=== PATIENT | male | born 1985 | race Caucasian/White ===

== ENCOUNTER 2021-12-29 09:51 | Emergency (ER) | payer OTHER, SELFPAY ==
--- NOTE | ~2021-12-29 | CT_ITS ---
EXAMINATION: CT brain wo con DATE: 12/29/2021 10:53 INDICATION: Head injury. TECHNIQUE: Computed tomography (CT) of the head was performed without intravenous contrast. The mA wa s adjusted according to patient size. Iterative reconstruction technique was employed. The dose-lengt h product was 681.00 mGy-cm. COMPARISON: None FINDINGS: There is no intracranial hemorrhage, acute infarction, or abnormal intracranial mass lesion . The ventricles are normal in size. The paranasal sinuses are clear. The orbits are normal. The mast oid air cells are normal. There is a superior scalp laceration. IMPRESSION: 1. Normal brain. Reviewed, dictated and finalized at location A. IMPRESSION: 1. Normal brain.
[2021-12-29 09:57] VITALS: BP 144/92; PULSE 91; RESP 20; TEMP 36.8; O2SAT 100
--- NOTE | 2021-12-29 10:15 | ED.WOUNDLAC ---
HPI - Wound/Laceration General Chief Complaint: Wound/Laceration Stated Complaint: Head lac Time Seen by Provider: 12/29/21 10:04 Source: patient Mode of arrival: ambulatory Limitations: no limitations History of Present Illness HPI narrative: Patient is a 36-year-old male who presents the ED with report of laceration to his head. Patient reports he was at the playground with his daughter today when he tried to pull himself up onto a platform and hit his head on a metal monkey bar. He sustained a large laceration to his superior head. Denied LOC. No other injuries. No vision changes, dizziness, lightheadedness, weakness. Tetanus status up-to-date. Review of Systems Review of Systems: CONSTITUTIONAL: Denies fever. SKIN: Reports laceration to superior scalp. NEUROLOGIC: Reports head injury. Denies LOC, dizziness, lightheadedness, numbness, or weakness. All systems reviewed & are unremarkable except as noted in HPI and below PMFSH Past Medical History Medical History (Updated 12/29/21 @ 11:48 by Rose Marie Carrera PA-C) ADHD (attention deficit hyperactivity disorder) Surgical History Surgical History (Updated 12/29/21 @ 11:43 by Rose Marie Carrera PA-C) No pertinent past surgical history Family History Family History (Updated 12/07/15 @ 23:19 by DOCTOR UNKNOWN) Father Family history of malignant neoplasm Sibling Family history of malignant neoplasm Mother Family history of malignant neoplasm of breast in first degree relative Social History Social History (Updated 12/29/21 @ 11:43 by Rose Marie Carrera PA-C) Smoking status: Never smoker Exam Narrative: GENERAL: Well appearing, well-nourished, non-toxic, in no acute distress. HEAD: Normocephalic. Approx 6cm linear superficial laceration to superior scalp, bleeding controlled. Minimal underlying swelling. No bony abnormalities palpated. EYES: PERRL/EOMI, conjunctivae clear bilaterally. NECK: Supple. No adenopathy, no masses. RESPIRATORY: Airway patent, respirations nonlabored. Clear to auscultation bilaterally, no rales, rhonchi, wheezing. CARDIOVASCULAR: Regular rate and rhythm without murmurs, rubs, or gallops. Radial pulses 2+ and equal bilaterally. MUSCULOSKELETAL: Moves all extremities. Strength/ROM intact without gross deformities. SKIN: Warm, dry, normal color. No rashes. NEURO: A&O X3. Speech clear. Cranial nerves II-XII grossly intact. Steady gait. No ataxic movements. PSYCHIATRIC: Appropriate mood and affect. Normal interaction. Course Vital Signs Vital signs: Vital Signs Temperature 98.3 F 12/29/21 09:57 Pulse Rate 91 12/29/21 09:57 Respiratory Rate 20 12/29/21 09:57 Blood Pressure 144/92 H 12/29/21 09:57 Pulse Oximetry 100 12/29/21 09:57 Oxygen Delivery Room Air 12/29/21 09:57 Temperature 98.3 F 12/29/21 09:57 Pulse Rate 91 12/29/21 09:57 Respiratory Rate 20 12/29/21 09:57 Blood Pressure 144/92 H 12/29/21 09:57 Pulse Oximetry 100 12/29/21 09:57 Oxygen Delivery Room Air 12/29/21 09:57 Procedures Laceration Laceration 1: Date: 12/29/21 Time: 11:35 Site: scalp Size (cm): 6 Description: linear Depth: simple, single layer Local Anesthetic: none Pre-repair: wound explored and irrigated extensively ====== Skin Level ====== Skin layer closed with: alberto (#8) ====== Subcutaneous Layer ====== ====== Muscle Layer ====== ====== Tendon Layer ====== MDM - Wound/Laceration MDM Narrative Medical decision making narrative: Patient presented to ED status post head injury with large scalp laceration, approximately 6 cm, linear, bleeding controlled. No LOC. Patient neurologically intact. Vital signs otherwise stable. Tetanus status up-to-date. CT scan of brain negative for acute intracranial abnormality. Laceration was thoroughly irrigated and repaired with 8 alberto. No complications. Patient was given
== END 2021-12-29 11:58 | disposition home or self-care (01) ==
LOC: ANHED 10:23
PROVIDERS: Emergency Provider Emergency Medicine; PCP Physician Assistant Medical
DX: S01.01XA Laceration without foreign body of scalp, initial encounter (principal); F90.9 Attention-deficit hyperactivity disorder, unspecified type; W22.09XA Striking against other stationary object, initial encounter
CPT/HCPCS: 12002; 70450; 99284